=== PATIENT | female | born 1940 | race Caucasian/White ===

== ENCOUNTER → 2018-08-12 | Outpatient (CLI) | payer MEDICARE ==
--- NOTE | 2018-08-12 14:27 | BD ---
EXAMINATION TYPE: Axial Bone Density DATE OF EXAM: 08/12/2018 COMPARISON: NONE CLINICAL HISTORY: Postmenopausal female. Osteoporosis screening Height: 5 FT Weight: 241 FRAX RISK QUESTIONS: RISK FACTORS HISTORY OF: Active: YES Postmenopausal woman: AGE 47 Take estrogen and/or progesterone medications: TOOK FOR A SHORT TIME . NO LONGER TAKES MEDICATIONS: Thyroid Medications: YES Which medication: SYNTHROID How Lon-10 YEARS Additional Medications: METFORMIN,SYNTHROID, VIT D , FISH OIL , MULTI,LOSARTIN, ANTI- DEPRESSANT Additional History: EXAM MEASUREMENTS: Bone mineral densitometry was performed using the [employer] System. Bone mineral density as measured about the Lumbar spine is: ----- L1-L4(G/cm2): 1.488 T Score Values are as follows: ----- L2: 2.9 ----- L3: 3.9 ----- L4: 2.3 ----- L1-L4: 2.6 BASELINE Bone mineral density about the R hip (g/cm2): 1.228 Bone mineral density about the L hip (g/cm2): 1.232 T Score values are as follows: -----R Neck: 1.1 -----L Neck: 1.4 -----R Total: 2.7 -----L Total: 2.6 BASELINE IMPRESSION: Normal (Values between +1 and -1 indicate normal bone mass). Consider repeating this study in 5 year s or sooner if there is some new clinical indication. NOTE: T-SCORE=SD OF THE YOUNG ADULT MEAN.
--- NOTE | 2018-08-18 09:36 | MM ---
Reason for exam: screening (asymptomatic). Last mammogram was performed 1 year and 11 months ago. History: Patient is postmenopausal. Benign excisional biopsy. Took estrogen for 2 years. Physical Findings: A clinical breast exam by your physician is recommended on an annual basis and results should be correlated with mammographic findings. MG 3D Screening Mammo W/Cad Bilateral CC and MLO view(s) were taken. Prior study comparison: September 19, 2016, bilateral MG 3d screening mammo w/cad. April 21, 2015, bilateral MG screening mammo w CAD. There are scattered fibroglandular densities. No significant changes when compared with prior studies. ASSESSMENT: Benign, BI-RAD 2 RECOMMENDATION: Routine screening mammogram of both breasts in 1 year.
== END | disposition home or self-care (01) ==
LOC: RADMAMWWP 09:03
PROVIDERS: ATTEND Family Medicine
DX: Z12.31 Encounter for screening mammogram for malignant neoplasm of breast (principal); Z78.0 Asymptomatic menopausal state
CPT/HCPCS: 77063; 77067; 77080